=== PATIENT | male | born 1990 | race Caucasian/White ===

== ENCOUNTER 2018-10-22 17:54 | Emergency (ER) | payer SELFPAY ==
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
== END 2018-10-22 18:15 | disposition left against medical advice (07) ==
LOC: ED 18:09
DX: R55 Syncope and collapse (principal)
CPT/HCPCS: 99283